=== PATIENT | female | born 1955 | race Caucasian/White ===

== ENCOUNTER 2022-02-06 11:13 | Outpatient (CLI) | payer MEDICARE, SELFPAY ==
[2022-02-09 15:54] LABS: Anti-Nuclear Ab(ANA)IgG ELISA None Detected (None Detected)
== END 2022-02-06 11:14 | disposition home or self-care (01) ==
PROVIDERS: PCP Family Medicine; Visit Provider Family Medicine
DX: Z00.00 Encounter for general adult medical examination without abnormal findings (principal); L65.9 Nonscarring hair loss, unspecified; B37.9 Candidiasis, unspecified; F32.9 Major depressive disorder, single episode, unspecified
CPT/HCPCS: 84443; 86039

== ENCOUNTER 2022-04-30 12:53 | Outpatient (CLI) | payer MEDICARE, SELFPAY ==
--- NOTE | 2022-04-30 13:00 | CRLHL7_ITS ---
For Patients: As a result of the Century Cures Act, medical imaging exams and procedure reports are released immediately into your electronic medical record. You may view this report before your referring provider. If you have questions, please contact your health care provider. BILATERAL SCREENING MAMMOGRAM WITH COMPUTER-AIDED DETECTION AND TOMOSYNTHESIS TECHNIQUE: CC, MLO and Implant displaced views were obtained. These mammographic images have been obtained using full-field digital technique. These mammographic images were interpreted with the benefit of computer-aided detection. Breast Tomosynthesis was used in this interpretation. COMPARISON FILM: 01/09/21, 07/28/19, 01/22/18. FINDINGS: The breasts are almost entirely fatty IMPRESSION: There is no radiographic evidence for malignancy. ASSESSMENT: BI-RADS Category 2: Benign RECOMMENDATION: Routine screening mammogram in 1 year. A lay language report of this examination will be provided to the patient. Juan Gerardo M.D. Diagnostic Radiologist [email or web address] ROMINA/Dictated by: Juan Gerardo MD @ 05/01/2022 9:16:00 AM (Electronically Signed)
== END 2022-04-30 12:54 | disposition home or self-care (01) ==
LOC: MAMMO 12:55
PROVIDERS: PCP Family Medicine; Visit Provider Family Medicine
DX: Z12.31 Encounter for screening mammogram for malignant neoplasm of breast (principal)
CPT/HCPCS: 77063; 77067

== ENCOUNTER 2023-03-05 08:44 | Outpatient (CLI) | payer MEDICARE, SELFPAY | END 2023-03-05 08:45 | disposition home or self-care (01) | LOC: NFLDREF 03-11 08:13 | PROVIDERS: PCP Family Medicine; Referring Provider Family Medicine; Visit Provider Family Medicine | DX: Z00.00 Encounter for general adult medical examination without abnormal findings (principal); E78.5 Hyperlipidemia, unspecified; M85.80 Other specified disorders of bone density and structure, unspecified site | CPT/HCPCS: 80053; 80061; 82306 ==

== ENCOUNTER 2023-04-08 14:21 | Outpatient (CLI) | payer MEDICARE, SELFPAY ==
--- NOTE | 2023-04-08 14:30 | CRLHL7_ITS ---
For Patients: As a result of the Cures Act, medical imaging exams and procedure reports are released immediately into your electronic medical record. You may view this report before your referring provider. If you have questions, please contact your health care provider. DXA BONE MINERAL DENSITY STUDY, 04/08/2023 Reason for exam: Osteoporosis. Current height (inches): 66.0 Weight (lbs.): 170.0 Menopause age: 45 Ethnicity: White 1. Have you had a previous hip or vertebral fracture? No. 2. Have you had any fractures during your adult life which did not result from significant trauma (e.g., auto accident)? No. 3. Did either of your parents have a hip fracture? No. 4. Do you smoke? No. 5. Have you ever taken Glucocorticoids? No. 6. Do you have rheumatoid arthritis? No. 7. Do you have secondary osteoporosis? No. 8. Do you drink 3 or more alcoholic drinks per day? No. 9. Are you being treated for osteoporosis? No. 10. Have you ever taken any of the following medications: Actonel, Evista, Fosamax, Miacalcin, Reclast, Boniva, Forteo, HRT (i.e., estrogen/hormone therapy), Protelos, Prolia, Vitamin D, Calcium, other ??? please specify. ANSWER: Yes; Fosamax, vitamin D, HRT, calcium. 11. Do you have any of the following medical conditions: Anorexia or bulimia, asthma or emphysema, end stage renal disease, hyperparathyroidism, any seizure disorders, cancer, inflammatory bowel diseases, hysterectomy, other ??? please specify. ANSWER: Yes; hysterectomy. 12. What was your maximum height (inches)? 67. 13. Do you perform weightbearing exercise regularly? No. 14. Do you regularly consume dairy products? Yes. 15. Do you drink caffeinated beverages? Yes. 16. At what age did your period start? 12. 17. Are you premenopausal? No. 18. How many full-term pregnancies have you had? 3. 19. Have you ever missed your period for more than 6 months in a row (not including or menopause)? No. TECHNIQUE: Bone mineral density study was performed using the [employer]. FINDINGS: The results of the study expressed as bone mineral density (BMD) are as follows: Lumbar Spine L1 to L4: BMD: 0.902 g/cm2. T-score: -1.3. Z-score: 0.6. Neck Left: BMD: 0.781 g/cm2. T-score: -0.6. Z-score: 1.1. Right: BMD: 0.682 g/cm2. T-score: -1.5. Z-score: 0.2. Total Left: BMD: 0.888 g/cm2. T-score: -0.4. Z-score: 0.9. Right: BMD: 0.822 g/cm2. T-score: -0.1. Z-score: 0.4. IMPRESSION: Osteopenia. COMPARISON: Compared with scan of 01/09/2021, the bone mineral density has decreased by 1.9% at the spine and decreased by 1.9% at the hip. *Comparison exams done prior to 12/2019 were performed on different unit, [employer]. FRAX 10-year Fracture Risk Major Osteoporotic Fracture: 9.5% Hip Fracture: 1.2% Reported Risk Factors: [place] () Neck BMD = 0.682, BMI = 27.4 JUAN FENTON M.D. Diagnostic Radiologist [email or web address] Transcribed: 11:[address]/Dictated by: Juan Fenton MD @ 04/09/2023 8:25:00 AM (Electronically Signed)
== END 2023-04-08 14:22 | disposition home or self-care (01) ==
PROVIDERS: PCP Family Medicine; Visit Provider Family Medicine
DX: I71.9 Aortic aneurysm of unspecified site, without rupture (principal); I34.0 Nonrheumatic mitral (valve) insufficiency; M81.0 Age-related osteoporosis without current pathological fracture; M85.80 Other specified disorders of bone density and structure, unspecified site
CPT/HCPCS: 77080; 93306

== ENCOUNTER 2023-12-01 14:34 | Outpatient (CLI) | payer MEDICARE, SELFPAY ==
--- OUTSIDE RECORDS SUMMARY | 2023-12-01 14:36 | XMS_ITS | Clinical Summary ---
Author Name Unknown Organization [facility] Address [address] [place] [address] Care Team Providers Care Finding Fastener Name Role Phone Madhu Bronson Primary Care Provider Unavailabl e Allergies No known active allergies Medications Medication Sig Dispensed Refills Start Date End Date Status BuPROPion HCl (WELLBUTRIN PO) Take 300 mg by mouth daily Active TRAZODONE HCL PO Take 150 mg by mouth daily Active LORazepam (ATIVAN PO) Take 0.5 mg by mouth every 4 hours as needed for anxiety Active OMEPRAZOLE PO Take 80 mg by mouth Active risperiDONE (RISPERDAL) 0.5 mg TABS half-tab Take 0.5 mg by mouth as needed Active Active Problems Problem Noted Date Diagnosed Date Abdominal pain 06/13/2018 Palpitations 05/28/2018 RBBB 05/28/2018 Ascending aorta dilatation (H24) 05/28/2018 Dyslipidemia 05/28/2018 Mitral valve regurgitation 05/28/2018 Chronic left shoulder pain 09/16/2017 Cervicalgia 09/16/2017 Resolved Problems Problem Noted Date Diagnosed Date Resolved Date Pain in joint, ankle and foot 03/07/2010 10/01/2010 Peroneal tendon injury 03/07/201010/01 Immunizations Name Administration Dates Next Due Influenza (High Dose) 3 shannan nt vaccine 05/16/2015,03/15/2014 Influenza (IIV3) PF 03/18/2013, 2,06/07/2010,2008 Influenza (intradermal) 03/20/2016 TD,PF 7+ (Tenivac) 11/18/2003 Tdap (Adult) Unspecified Formulation 06/12/2012 Family History Medical History Relation Comments Thyroid Disease Brother Thyroid Disease Father Chronic Obstructive Pulmonary Disease Mother Heart Surgery Mother mitral valve rep laced Hypertension Mother Thyroid Disease Sister 1 Thyroid Disease Sister 2 Relation Status Comments Brother Father Mother Sister 1 Sister 2 Social History Tobacco Use Types Packs/Day Years Used Date Smoking Tobacco: Never Smokeless Tobacco: Never Alcohol Use Standard Drinks/Week Comments Yes 0 (1 standard drink = 0.6 oz pur e alcohol) 6 drinks per week Sex and Gender Information Value Date Recorded Sex Assigned at Not on file Gender Identity Not on file Sexual Orientation Not on file Last Filed Vital Signs Vital Sign Reading Time Taken Comments Blood Pressure 145/57 06/14/2018 7:25 AM NETWORK CONTROL TECHNICIAN Pulse 69 06/14/2018 7:25 AM NETWORK CONTROL TECHNICIAN Temperature 36.1 ??C (96.9 ??F) 06/14/2018 7:25 AM CS T Respiratory Rate 16 06/14/2018 7:25 AM NETWORK CONTROL TECHNICIAN Oxygen Saturation 97% 06/14/2018 7:25 AM NETWORK CONTROL TECHNICIAN Inhaled Oxygen Concentration - - Weight 78.9 kg (174 lb) 06/13/2018 8:21 PM NETWORK CONTROL TECHNICIAN Height 167.6 cm (5' 6) 06/13/2018 8:21 PM NETWORK CONTROL TECHNICIAN Body Mass Index 28.08 06/13/2018 8:21 PM NETWORK CONTROL TECHNICIAN Plan of Treatment Not on file Advance Directives For more information, please contact: [phone] * Full Code (Latest Code Status on File) Date Activated Date Inactivated Comments 06/14/2018 1:06 PM Question Answer Comments Code status determined by: Discussion with sujit nt/legal decision maker Care Teams Finding Fastener Relationship Specialty Start Date End Date Madhu Bronson [address] [place] [address] PCP - General 05/03/18
--- OUTSIDE RECORDS SUMMARY | 2023-12-01 14:36 | XMS_ITS | Referral Summary ---
Author Name Unknown Organization [facility] Address [address] [place] [address] Care Team Providers Care Account Development Executive Name Role Phone Madhu Bronson Primary Care [...] (Tenivac) 11/18/2003 Tdap (Adult) Unspecified Formulation 06/12/2012 Social History Tobacco Use Types Packs/Day Years [...] Comments Blood Pressure 145/57 06/14/2018 7:25 AM MACHINIST FIRST CLASS Pulse 69 06/14/2018 7:25 AM MACHINIST FIRST CLASS Temperature 36.1 ??C (96.9 ??F) 06/14/2018 7:25 AM CS T Respiratory Rate 16 06/14/2018 7:25 AM MACHINIST FIRST CLASS Oxygen Saturation 97% 06/14/2018 7:25 AM MACHINIST FIRST CLASS Inhaled Oxygen Concentration - - Weight 78.9 kg (174 lb) 06/13/2018 8:21 PM MACHINIST FIRST CLASS Height 167.6 cm (5' 6) 06/13/2018 8:21 PM MACHINIST FIRST CLASS Body Mass Index 28.08 06/13/2018 8:21 PM MACHINIST FIRST CLASS Plan of Treatment Not on file Advance Directives For more information, please contact: [phone] * Full Code (Latest Code Status on File) Date Activated Date Inactivated Comments 06/14/2018 1:06 PM Question Answer Comments Code status determined by: Discussion with sujit watson/legal decision maker Care Teams Account Development Executive Relationship Specialty Start Date End Date Madhu Bronson [address] [place] [address] PCP - General 05/03/18
--- OUTSIDE RECORDS SUMMARY | 2023-12-01 14:37 | XMS_ITS | Clinical Summary ---
Author Name Unknown Organization [facility] Address [place], [place] [address] Care Team Providers Care Job Counselor Name Role Phone Madhu Brnoson MD Primary Care Provider [phone] Allergies Active Allergy Reactions Criticality Noted Date Comments Aripiprazole Tardive Dyskinesia 01/31/2013 Mouth movements at 10 mg daily Medications Medication Sig Dispensed Refills Start Date End Date Status multivitamin (MVI) tablet Take 1 tablet by mouth once daily. 0 09/13/2010 Active omeprazole (PRILOSEC) 40 mg Delayed-Release capsule Take 1 capsule by mouth once daily. 0 05/31/2019 Active buPROPion (WELLBUTRIN XL) 300 mg Extended-Release tabletIndications:Ma andrea depression, recurrent, full remission (HC),Obsessive-compu lsive disorder, unspecified type Take 1 tab by mouth every AM after taking 150 mg for 2 weeks 90 tablet 1 12/13/2019 Active traZODone (DESYREL) 150 mg tabletIndications:Ma andrea depression, recurrent, full remission (HC) Take 2 tabs by mouth every HS 180 tablet 1 12/13/2019 Active Clobetasol Propionate 0.05 % shampoo Apply directly to the affected area of the scalp. Rub in gently; leave on the scalp for 15 minutes. After 15 minutes, add water, lather and 12/06/2020 Active clonazePAM (KLONOPIN) 1 mg tablet Take 1 mg by mouth 2 times daily if needed. 12/06/2020 Active diclofenac topical (VOLTAREN) 1 % gel APPLY 2 TO 4 GRAMS TO AFFECTED AREA 4 TIMES DAILY 12/15/2020 Active rosuvastatin (CRESTOR) 5 mg tablet Take 5 mg by mouth once daily. 12/10/2020 Active terbinafine HCL (LAMISIL) 250 mg tablet Take 250 mg by mouth once daily. 12/15/2020 Active buPROPion (WELLBUTRIN XL) 150 mg Extended-Release tablet take 2-3 tablets by mouth once daily 12/06/2020 Active estradioL (ESTRACE) 1 mg tablet Take 1 mg by mouth once daily. 12/31/2020 Active cetirizine (ZYRTEC) 10 mg tabletIndications:Tang bacute maxillary sinusitis Take 1 Tablet (10 mg) by mouth once daily. 30 Tablet 01/27/2021 Active fluticasone (50 mcg per actuation) nasal solution (FLONASE)Indications :Subacute maxillary sinusitis Inhale 2 Sprays to both nostrils once daily. 1 Bottle 01/27/2021 Active benzonatate (TESSALON) 100 mg capsuleIndications:C ough Take 1 Capsule (100 mg) by mouth 3 times daily if needed for Cough. May take 1-2 capsules prn cough. Maximum 6 tablets in 24 hours. 21 Capsule 01/27/2021 Active codeine-guaiFENesin (Cheratussin AC) 10-100 mg/5 mL liquidIndications:Co ugh Take 5-10 mL by mouth at bedtime if needed for Cough. 100 mL 01/31/2021 Active fluocinolone 0.025% (SYNALAR 0.025% CREAM) 0.025 % cream APPLY TO AFFECTED AREA TWICE DAILY as needed 04/12/2021 Active triamcinolone (ARISTOCORT) 0.1 % ointmentIndications: Dermatitis Apply topically to affected area(s) 2 times daily. 80 g 07/11/2021 Active Active Problems Problem Noted Date Diagnosed Date Controlled substance agreement signed 12/23/2018 Overview: Signed: 09/14/14- Mirna Hurtado APRN, BC, SOUND EFFECTS MANAGER /psychiatry /mf Bradycardia 01/20/2015 Overview: Holter 12/2014 with average 55 beats per minute, asymptomatic. Major depression, recurrent, full remission 12/20 Osteopenia 01/08/2015 Overview: DEXA 12/2014 with FRAX 0.8%, T score -1.5 right femur. Calcium/Vit D recommended. Previously on Fosamax. Obsessive-compulsive personality trait 5 Rule out Bipolar 2 disorder 08/09/2014 Encounter for long-term (current) use of other m edications 12/05/2013 Dyslipidemia 09/18/2013 Palpitations 06/08/2013 Mitral regurgitation 06/08/2013 Overview: mild noted on echocardiogram 01/2012. Generalized anxiety disorder 04/06/2012 Screen for colon cancer 08/09/2009 Sinus bradycardia 08/02/2008 Disorder of bone and cartilage, unspecified 09/2006 Presbyopia 02/02/2007 Unspecified hemorrhoids without mention of compl ication 01/26/2007 Overview: internal, seen in 2001 colposcopy Symptomatic states associated with artificial me nopause 11/17/2005 FATIGUE 12/02/1999 MYLAGIA - NOS 12/02/1999 CONSTIPATION HIATUS HERNIA Overview: EGD 06/2012 reflux Resolved Problems Problem Noted Date Diagnosed Date Resolved Date OCD (obsessive compulsive disorder) 12/05/2013 10/30/2014 Major depression, recurrent, mild 02/17/2012 01/16/2015 Recurrent major depression in remission 01/06/2012 02/17/2012 Major depressive disorder, r ecurrent episode, unspecified 08/13/2007 01/06/2012 Disorder of bone and cartilage, unspecified 01/26/2007 09/02/2011 COlonoscopy 2001-normal 11/17/200507/21 Bipolar disorder, unspecified 11/17/2005 08/13/2007 Overview: headaches.~Bipolar mood disorder.~no anesthetic difficulties. Depressive disorder, not elsewhere classified 11/18/19 06 02/17/2012 VAGINITIS - CANDIDIASIS 08/21/200508/20 UPPER RESPIRATORY INFECTION - ACUTE 12/10/2004 09/02/2011 Immunizations Name Administration Dates Next Due COVID-19 vaccine (Moderna 100mcg/0.5mL) PF, MDV 10/13/2020,09/15/2020 Influenza Virus, Unspecified 03/20/2016 Influenza, High-dose Inactivated 05/16/2015,02/18 Influenza, IIV3 (Age 6-35 mos) 03/16/2018 Influenza, IIV3 (Age >=3 years) 03/18/20 13,03/18/2012,06/07/2010,2008 Influenza, IIV4 05/18/2020,03/20/2016,05/16/2015 Influenza, IIV4 (=>6mos) MDV 04/30/2019,03/24/20 17 Pneumococcal conj 13-Valent (Prevnar 13) 07/26/2020 Td (Age >=7 Years) 11/18/2003 Tdap 12/06/2020,06/12/2012 Zoster (Shingrix-RZV, recombinant) 05/04/2018, Family History Medical History Relation Name Comments Good Health Brother Thyroid Disease Father Stroke Maternal Grandmother Other Mother macular degener ation/glaucoma Thyroid Disease Sister 1 #1 Thyroid Disease Sister 2 #2 Anesthesia Problem No Family History Blood Disease No Family History Cancer-breast No Family History Relation Name Status Comments Brother Father Maternal Grandmother Mother (Age 71) htn, glauc [place]ud Sister 1 #1 Sister 2 #2 Social History Tobacco Use Types Packs/Day Years Used Date Smoking Tobacco: Never Smokeless Tobacco: Never Tobacco Cessation:Counseling Given: Yes Alcohol Use Standard Drinks/Week Comments Yes 0 (1 standard drink = 0.6 oz pur e alcohol) 10 drinks/week PHQ-2 Answer Date Recorded PHQ-2 TOTAL SCORE 0 12/13/2019 Social Connections Answer Date Recorded Frequency of Communication with Friends and Fami ly Not on file 07/10/2021 Financial Resource Strain Answer Date R ecorded Difficulty of Paying Living Expenses Not on file 07/10/2021 Difficulty of Paying Living Expenses Not on file 07/10/2021 Sex and Gender Information Value Date Recorded Sex Assigned at Not on file Gender Identity Not on file Sexual Orientation Not on file Obstetrics History Para Term AB IAB SAB Ectopic Multiple Livin g Live Births 3 3 3 Date Outcome GA Total Labor Labor/2nd/3rd Weight Sex Delivery Anes PTL Silvia A1 A5 Name Cl in Para Para Para Last Filed Vital Signs Vital Sign Reading Time Taken Comments Blood Pressure 110/80 07/11/2021 10:42 AM THIRD MATE Pulse 70 07/11/2021 10:42 AM THIRD MATE Temperature 37 ??C (98.6 ??F) 05/02/2021 12:32 PM CDT Respiratory Rate 15 01/27/2021 2:01 PM CDT Oxygen Saturation 97% 01/31/2021 2:28 PM CDT Inhaled Oxygen Concentration - - Weight 77.1 kg (170 lb) 07/11/2021 10:42 AM THIRD MATE Height 168.9 cm (5' 6.5) 07/11/2021 10:42 AM CS T Body Mass Index 27.03 07/11/2021 10:42 AM THIRD MATE Plan of Treatment Health Maintenance Due Date Last Done Comments Hepatitis C screening for ag e 18-79 1973 Mammogram for age 45-75 09/20/2016 09/21/19 16, 09/14/2014, 06/23/2013, Additional history exists Colonoscopy through age 75 08/07/2019 08/07/2009 DEXA/DXA scan for age 65+ 07/23/20202014, 02/24/2012, 06/25/2010, Additional history exists Medicare Wellness for age 65+ 2020 Depression screening for age 12+ 12/12/2020 12/13/2019, 10/27/2019, 10/11/2019, Additional history exists Lipids for age 45-75 06/18/2021 06/18/2016, 01/08/2015, 01/16/2014, Additional history exists Pneumococcal series for age 65+ (2 of 2 - PPSV23 or PCV20) 07/26/2021 07/26/2020 BMI (ht and wt on same day) for age 18+ 07/11/2022 07/11/2021, 05/02/2021, 01/27/2021, Additional history exists COVID-19 vaccine series ( season) 2023 05/19/2021, 10/13/2020, 09/15/2020 Influenza for age 65+ 03/20/2024 05/18/2020 , 04/30/2019, 03/24/2017, Additional history exists Tetanus booster 12/06/2030 12/06/2020, 05/21, 11/18/2003 Zoster (shingles) series for age 50+ Completed 05/04/2018, 02/18/2018 Tdap Completed 12/06/2020, 06/12/2012 Procedures Procedure Name Priority Date/Time Associated Diagnosis Comments LIPID PANEL W REFLEX MEASURED LDL Routine 06/18/2016 10:18 AM THIRD MATE Dyslipidemia XR MAMMO BILAT DIAG FFDM (IA) Routine 09/21/2015 1:36 PM THIRD MATE Lump in female breast History of breast augmentation XR DXA BONE DENSITY 2 SITES AXIAL Routine 01/16/2015 2:15 PM CDT Osteopenia from Last 3 Months or Most Recently Relevant to Health Maintenance Results * (ABNORMAL) LIPID PANEL W REFLEX MEASURED LDL (06/18/2016 10:18 AM THIRD MATE) CHOLESTEROL,TOTAL 250(H) 100 - 199 mg/dL 06/18/2016 4:35 PM THIRD MATE [facility] Bright Pattern [facility] TRAL LABORAT[facility] TRIGLYCERIDES 96 <150 mg/dL 06/18/2016 4:35 PM THIRD MATE [facility] HDL CHOLESTEROL 72 >40 mg/dL 6 4:35 PM THIRD MATE [facility] NON-HDL CHOLESTEROL 178(H) <145 mg/dl 06/18/2016 4:35 PM THIRD MATE [facility] CHOL/HDL RATIO 3.47 <4.50 06/18/2016 4:35 PM THIRD MATE [facility] LDL CHOLESTEROL 159(H) <=130 mg/dL 06/18/2016 4:35 PM THIRD MATE [facility] PATIENT STATUS NOT GIVEN 06/18/2016 4:35 PM THIRD MATE [facility] Bright Pattern [facility] TR[facility] Blood BLOOD SPECIMEN / Unknown Venipuncture / Unknown 06/18/2016 10:18 AM THIRD MATE 06/18/2016 10:18 AM THIRD MATE Suni Del Rio DO CHEMISTRY [facility] [address] [place] [address], [place] * XR MAMMO BILAT DIAG FFDM (09/21/2015 1:36 PM THIRD MATE) Anatomical Region Laterality Modality BREASTS, Breast Left, Breast Right Bilateral Mammography Impressions 09/21/2015 4:35 PM THIRD MATE There are findings of benign fat necrosis at the level of the patient's described palpable lump. There is no evidence for malignancy in the BILATERAL breasts. RECOMMENDATION: ?? Annual screening mammography is recommended. BI-RADS Category 2: Benign Dictated by: Ana Lilia Crawley MD @09/21/2015 2:09:24 PM Narrative 09/21/2015 4:35 PM THIRD MATE BILATERAL DIGITAL DIAGNOSTIC MAMMOGRAM, 09/21/2015 LEFT BREAST ULTRASOUND, 09/21/2015 INDICATION: LEFT breast lump noted about 1 month ago. The patient had breast implants placed 6 months ago and also a breast lift procedure. TECHNIQUE: BILATERAL CC and MLO views and BILATERAL CC and MLO views with breast implants displaced are interpreted with digital technique. COMPARISON: 09/14/2014. BREAST COMPOSITION: ?? Almost entirely fat density. FINDINGS: In the RIGHT breast, there is no evidence for malignancy. In the LEFT breast, a marker was placed in the region of interest which is located at the 6 o'clock position. At the 6 o'clock position of the LEFT breast, 5.7 cm from the nipple on the MLO implant-displaced view, there is a curvilinear hyperdensity with internal fat density. A similar finding is present on the LEFT CC view projecting over the retroareolar tissues. I suspect that this is fat necrosis. For improved characterization, a limited LEFT breast ultrasound will be performed today. A limited LEFT breast ultrasound of the lower LEFT breast was performed and real-time scanning was performed by the radiologist. At the level of interest indicated by the patient, there is a circumscribed, oval mass with a peripheral echogenic rim and a central lobulated hypoechoic region. Under color Doppler, there is no abnormal vascularity. This region measures 3.2 x 2.4 x 0.8 cm. There is no posterior acoustic shadowing. The appearance is considered evidence of benign fat necrosis. Suni Del Rio DO MAMMO * (ABNORMAL) XR DXA BONE DENSITY 2 SITES (01/16/2015 2:15 PM CDT) Anatomical Region Laterality Modality Spine, HIPS, HIPL, HIPR Other Narrative 01/17/2015 2:58 PM CDT Please see scanned document for results of this study. Procedure Note Judi Castillo - 01/17/2015 Please see scanned document for results of this study. Suni Del Rio DO DEXA from Last 3 Months or Most Recently Relevant to Health Maintenance Care Teams Job Counselor Relationship Specialty Start Date End Date Madhu Bronson MD [address] [place] [address] PCP - General Family Practice 08/30/19
--- NOTE | 2023-12-01 14:40 | MM_ITS ---
Patient: BRENDON WOOD Facility:?[facility] Patient ID:?[id number] Site Patient ID:?[id number]. Site :?[id number] Study:?XRay-Breast Bilateral 3D W/CAD-12/01/2023 2:58:22 PM Ordering Physician:Madhu Pop Final Report: BILATERAL SCREENING MAMMOGRAM WITH COMPUTER-AIDED DETECTION TECHNIQUE: CC, MLO and Implant displaced views were obtained. These mammographic images have been obtained using full-field digital technique. These mammographic images were interpreted with the benefit of computer-aided detection. COMPARISON FILM: 04/30/22, 01/09/21, 07/28/19. FINDINGS: There are scattered areas of fibroglandular density. IMPRESSION: There is no radiographic evidence for malignancy. ASSESSMENT: BI-RADS Category 2: Benign RECOMMENDATION: Routine screening mammogram in 1 year. A lay language report of this examination will be provided to the patient. Juan Gerardo M.D. Diagnostic Radiologist [email or web address] DSM/sp D& Transcribed: 7:25 p.m. SP/Dictated by: Juan Gerardo MD @ 12/02/2023 8:39:00 AM Signed by:?Juan Gerardo MD @12/02/2023 7:45:56 PM (Electronic Signature)
== END 2023-12-01 14:35 | disposition home or self-care (01) ==
LOC: MAMMO 14:34
PROVIDERS: PCP Family Medicine; Visit Provider Family Medicine
DX: Z12.31 Encounter for screening mammogram for malignant neoplasm of breast (principal)
CPT/HCPCS: 77063; 77067

== ENCOUNTER 2025-01-03 16:22 | Emergency (ER) | payer MEDICARE, SELFPAY ==
--- OUTSIDE RECORDS SUMMARY | 2025-01-03 16:25 | XMS_ITS | Data Portability ---
Author Organization SANDRA - [facility] SANDRA Cai, Vickie Address [address] [place] [address] Assessment Encounter Date Assessment Date Assessment LastModified by Organization Details LastModified Time 11/18/2024 11/18/2024 -25 mins - Documented the total time spent on patient care, including bnnr-bj-nuny and rqc-qhzv-mw-f james activities including reviewing outside records and documentation . [email or web address] Not available 11/18/2024 19:33:50 12/21/2024 12/21/2024 -30 mins - Documented the total time spent on patient care, including onzl-xd-hkiq and hwj-utby-vb-f james activities including reviewing outside records and documentation . [email or web address] Not available 12/21/2024 18:34:21 Plan of Treatment Reminders Order Date Submit Date Provider Last Modified By Organization Details Last Modified Time Details Appointments Annual Wellness Visit 2024 10:40A M Brittani Denis CNP Not available Not available Not available Lab None recorded. Referral orthopedi c sports medicine referral - Referral to Orthopedi cs Evaluati on of SciaticaR lizzy for Referral: Patient presents with sciatic pain, character ized by radiating discomfor t down the left lower extremity consisten t with nerve root involveme nt.Clinic al Summary:C onservati ve treatment with physical therapy and acetamino phen has been initiated . Oral NSAIDs avoided due to cardiovas cular risks. Pain persists and is limiting function despite icing, recommend ed exercises , and tylenol. Evaluatio n is requested to assess for possible structura l causes (e.g., disc herniatio n, foraminal stenosis) and to determine if imaging or injection s 2024 025 [email or web address] [facility], [address] [place], [place], [address], 12/21/2024 13:40:11 Procedures None recorded. Surgeries None recorded. Imaging None recorded. Medication Orders methylpre dnisolone 4 mg tablets in a dose pack 2024 025 [id number], [address] [place] [address], [place], [address], 12/21/2024 10:34:49 bupropion HCl XL 150 mg 24 hr tablet, extended release 2024 025 [id number], [address] [place] [address], [place], [address], 11/18/2024 19:21:32 pantopraz ole 40 mg tablet,de layed release 2024 025 [id number], [address] [place] [address], [place], [address], 11/18/2024 19:21:32 clonazepa m 0.5 mg tablet 2024 025 [id number], [address] [place] [address], [place], [address], 11/18/2024 19:21:34 rosuvasta tin 5 mg tablet 2024 025 [id number], [address] [place] [address], [place], [address], 11/18/2024 19:21:34 Patient TargetsNo targets recorded. Patient Instructions Encounter Date Encounter Id Patient Instructions Last Modified By Organization Details Last Modified Time 11/18/2024 [id number] Your medication refills have been processed for all your current prescriptions, except for semaglutide. You will be scheduled for a lab-only visit in about one week to complete a GeneSight cheek swab test. This test is to help guide your depression and anxiety medication options. When you receive the Placesteright pamphlet, please review it and call your insurance company to confirm coverage. If you discover that the test will be too costly, you may cancel the lab appointment. After results are received, we can review them together and make a plan. Your annual wellness exam is due in February. Your lab work for cholesterol and other routine tests will be deferred to coincide with that visit. Please reach out sooner with any questions or concerns. [email or web address] Not available 11/18/2024 19:33:28 12/21/2024 [id number] - Duloxetine has been removed from your medication list, as you have chosen to stop taking it at this time. Continue your current bupropion and trazodone. - Take the 6-day prednisone pack as prescribed to help reduce inflammation and relieve sciatica pain. - Perform the home exercises to ease nerve irritation; see below. - See the housing specialist as referred to discuss a possible corticosteroid injection and to be evaluated for physical therapy. - Apply an mgzd-wnr-satgegr salicylic acid spot treatment directly to the acne spot; avoid spreading it over healthy skin. If the lesion does not heal within 4 6 weeks, arrange a dermatology evaluation. - If your sciatica pain returns or worsens as you taper off the prednisone, contact the housing specialist or our office for further management. For left leg sciatica, gentle stretching and strengthening exercises can help relieve nerve pressure and improve mobility. Start with: 1. Piriformis Stretch Lie on your back with both knees bent. Cross your right ankle over your left knee and gently pull the left thigh toward your chest. Hold for 20 30 seconds. Repeat on both sides. 2. Mkkk-rw-Hsplk Stretch While lying on your back, pull your left knee toward your chest and hold for 20 30 seconds. This helps relieve pressure on the sciatic nerve. 3. Cat-Cow Stretch On hands and knees, alternate arching your back up and dipping it down slowly. This mobilizes the spine and reduces tension on the sciatic nerve. 4. Pelvic Tilts Lie on your back with knees bent. Flatten your lower back against the floor by tightening your abdominal muscles and tilting your pelvis upward slightly. Hold for a few seconds, then relax. 5. Standing Hamstring Stretch Place your left heel on a low surface (like a step), keep the knee straight, and gently lean forward at the hips until you feel a stretch in the back of your thigh. Perform each stretch gently and stop if pain worsens. These should be done daily or as tolerated. If symptoms persist or worsen, physical therapy evaluation is advised. [email or web address] Not available 12/21/2024 18:33:40 Reason for Referral Orthopedic Sports Medicine Klarissa bond for Disorder of left sciatic nerve Referral to Orthopedics Evaluation of SciaticaReason for Referral:Patient presents with sciatic pain, characterized by radiating discomfort down the left lower extremity consistent with nerve root involvement.Clinical Summary:Conservative treatment with physical therapy and acetaminophen has been initiated. Oral NSAIDs avoided due to cardiovascular risks. Pain persists and is limiting function despite icing, recommended exercises, and tylenol. Evaluation is requested to assess for possible structural causes (e.g., disc herniation, foraminal stenosis) and to determine if imaging or injections Referring Physician: Brittani Denis, Family Medicine, Encounter Date: 12/21/2024 Results Created Date Observation Date Name Description Value Unit Range Abnormal Flag Note LastModifiedBy Organization Detail LastModifiedTime Result Notes None recorded. 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 4 11:56:53 Diaphrag matic hernia 69205816 Active 2014 HIATUS HERNIA Not Available [facility] 4 11:50:47 Screenin g status 917841239 Completed 200905/10/2024 Screen for colon cancer Not Available [facility] 4 11:50:47 Ascendin g aorta dilatati on 517167086 Active 2017 Ascendin g aorta dilatati on Not Available [facility] 4 11:50:48 Disorder of bone 26549465 Active 2006 Disorder of bone and cartilag e, unspecif ied Oste openia Not Available [facility] 4 11:50:48 Drug indicate d 564258301 Active 2013 Encounte r for long-ter m (current ) use of other medicati ons Cont rolled substanc e agreemen t signed Not Available [facility] 4 11:50:48 Bradycar angel 82391217 Active 2008 48-50s, low heart rate all of my life used to faint occasion ally but hasn't for many years. Saw [facility] cardiolo gist but does not require follow up per patient report. SANDRA [place] - [facility] 4 11:54:47 Symptoms and signs involvin g hoseaan ce and behavior 034272042 Active 2014 Obsessiv e-compul constanzae personal ity trait Not Available [facility] 4 11:50:49 Generali zed anxiety disorder 92521940 Active 2011 Generali zed anxiety disorder Not Available [facility] 4 11:50:49 Malaise 972774426 Active 1999 FATIGUE Not Available [facility] 4 11:50:49 Non-rheu matic mitral regurgit ation 120732588 Active 2012 Mitral regurgit ation mild per echo 03/2023; Echo compared to 2018 no signific ant changes [facility] [place] - [facility] 4 11:55:57 Hemorrho ids 88224627 Completed 200605/10/2024 Unspecif ied hemorrho ids without mention of complica tion Not Available [facility] 4 11:50:50 Presbyop ia 33765490 Active 2006 Presbyop ia Not Available [facility] 4 11:50:50 Atrophic vaginiti s 68810287 Active 2023 Post-men opausal atrophic vaginiti s Not Available [facility] 4 11:50:50 Hyperlip idemia 84884379 Active 2013 Dyslipid emia Hyp erlipemi a Not Available [facility] 4 11:50:51 Palpitat ions 49590753 Active 2012 Palpitat ions Not Available [facility] 4 11:50:51 Long-ter m drug therapy Active 2018 Controll ed substanc e agreemen t signed Jennifer Ngdonna figueroa, [facility] 4 20:24:22 Osteopen ia 693107746 Active 2014 history of fosamax, does not recall how long she was on it for Rivas figueroa, [facility] 4 12:00:33 Notes:Problem Name: MYLAGIA - NOS Problem Code Type: SNOMED Status: Active Start_Date: 12/01/1999 - Problem Notes None recorded. Procedures Surgical History Date Name Laterality Status Provider Name and Address Organization Details Recorded Time 4 Date of Last Colonoscopy completed [facility] 06/13/2024 12:08:51 6 Date of Last Mammogram completed [employer] [facility] 06/13/2024 12:08:34 5 Most Recent Bone Density completed [employer] [facility] 06/13/2024 12:09:06 Imaging Results None recorded. Procedure Notes None recorded. Medical Equipment None Reported. Allergies Allergen ID Allergen Name Allergen Category Reaction Reaction Severity Criticality Documentation Date Start Date Code Code System Note Provider Name and Address Organization Details Recorded Time 87051 aripipraz ole Not available Not available Not available Not available 05/10/20242012 46303 RxNorm React ion: Tardi ve Dyski nesia , sever ity: Mild Not Available [facility] 4 12:11:03 65361 aripipraz ole medicatio n Not available Not available Not available 11/18/20242012 69906 RxNorm Mouth movem ents at 10 mg daily unrec ogrudy ed react ion (text : Tardi ve Dyski nesia , code: [id number]) [facility] Not Available [place] - External Data Service - prod 5 03:57:14 Medications Name Sig Start Date Stop Date Status Note LastModified by Organization Details LastModified Time doxycycli ne hyclate 100 mg capsule 11/18 completed Not Available Not Available Not Available polyethyl don glycol 3350 17 gram oral powder packet TAKE 1 PACKET PO DAILY 2023 active Not Available Not Available Not Avai lable cetirizin e 10 mg tablet 01/07 completed Not Available Not Available Not Available benzonata te 200 mg capsule 11/18 completed Not Available Not Available Not Available valacyclo vir 1 gram tablet TAKE 2 TABLETS BY MOUTH IN THE MORNING AND 2 IN THE EVENING FOR ONE DAY PER OUTBREAK 11/18 completed Not Available Not Available Not Available clonazepa m 0.5 mg tablet Take 1 tablet (0.5 mg) by mouth once daily as needed for acute anxiety. * active Not Available Not Available No t Available clonazepa m 1 mg tablet Take 1 mg twice a day by oral route as needed. 11/18 completed clonazeP AM 1 mg Tab Take 1 mg by mouth 2 times daily if needed. Not Available Not Available Not Available clobetaso l 0.05 % topical cream APPLY TO AFFECTED AREAS OF THE BODY (BUTTOCK AREA) TWO TIMES DAILY FOR, 3 MONTHS THEN 2X/WEEK FOR MAINTENA NCE active Not Available Not Available No t Available omeprazol e 40 mg capsule,d elayed release 01/07 completed Not Available Not Available Not Available triamcino lone acetonide 0.1 % topical cream Apply twice a day by topical route. 11/18 completed Triamcin olone Acetonid e 0.1 % Oint Apply topicall y to affected area(s) 2 times daily. Not Available Not Available Not Available terbinafi ne HCl 250 mg tablet 01/07 completed Not Available Not Available Not Available methocarb yani 750 mg tablet 11/18 completed Not Available Not Available Not Available estradiol 1 mg tablet 01/07 completed Not Available Not Available Not Available benzonata te 100 mg capsule 02/23 completed Not Available Not Available Not Available pantopraz ole 40 mg tablet,de layed release TAKE 1 TABLET (40 mg) BY MOUTH TWICE DAILY.* active Not Available Not Available No t Available trazodone 150 mg tablet TAKE TWO TABLETS BY MOUTH NIGHTLY AT BEDTIME* active Not Available Not Available No t Available tacrolimu s 0.03 % topical ointment Apply twice a day by topical route as needed. 11/18 completed Tacrolim us 0.03 % Oint twice daily as needed Not Available Not Available Not Available codeine 10 mg-guaife nesin 100 mg/5 mL Syrup 01/07 completed Not Available Not Available Not Available estradiol 0.01% (0.1 mg/gram) vaginal cream INSERT 2 GRAMS VAGINALL Y ONCE DAILY FOR 2 WEEKS, THEN DECREASE TO 1 GRAM TWICE PER WEEK THEREAFT ER* 11/18 completed Not Available Not Available Not Available methylpre dnisolone 4 mg tablets in a dose pack Take 1 dose pack by oral route as directed .* active Not Available Not Available No t Available clobetaso l 0.05 % scalp solution USE DIRECTED TO THE SCALP TWICE A DAY ON TO CLEAN AND DRY HAIR FOR 2 WEEKS AND THEN NEEDED FOR FLARES active Not Available Not Available No t Available fluticaso ne propionat e 50 mcg/actua tion nasal spray,abdiaziz pension Sparkman 2 sprays every day by intranas al route. 11/18 completed Fluticas one Propiona te 50 MCG/ACT Suspensi on Nasal Inhale 2 Sprays to both nostrils once daily. Not Available Not Available Not Available dicyclomi ne 10 mg capsule take 1 capsule by oral route 3 times every day as needed for abdomina l pain* 11/18 completed Not Available Not Available Not Available amoxicill in 875 mg-potass ium clavulana te 125 mg tablet 11/18 completed Not Available Not Available Not Available rosuvasta tin 5 mg tablet TAKE 1 TABLET BY MOUTH ONE TIME DAILY.* active Not Available Not Available No t Available bupropion HCl XL 150 mg 24 hr tablet, extended release TAKE 2 TABLETS (300 mg) BY MOUTH ONCE DAILY.* active Not Available Not Available No t Available Saccharom yces boulardii 250 mg capsule 11/18 completed Not Available Not Available Not Available clobetaso l 0.05 % shampoo 11/18 completed Clobetas ol Propiona te 0.05 % Shampoo Apply directly to the affected area of the scalp. Rub in gently; leave on the scalp for 15 minutes. After 15 minutes, add water, lather and Not Available Not Available Not Available duloxetin e 60 mg capsule,d elayed release Take 1 capsule by oral route. active Not Available Not Available No t Available bupropion HCl 11/18 completed buPROPio n ER (XL) 150 mg Tab ER 24hr take 2-3 tablets by mouth once daily Not Available Not Available Not Available fluocinol one acetonide (bulk) 11/18 completed Fluocino lone Acetonid e 0.025 % Crm APPLY TO AFFECTED AREA TWICE DAILY as needed Not Available Not Available Not Available diclofena c 1 % topical gel 01/07 completed Not Available Not Available Not Available semagluti de (weight loss) Inject 0.4 mL weekly active Not Available Not Available No t Available Vitals Date Recorded Body height Body mass index (BMI) Body weight Body temperature Oxygen saturation Oxygen saturation in Arterial blood by Pulse oximetry Heart rate Systolic blood pressure Diastolic blood pressure Provider Name and Address Organization Details Last Updated DateTime 167.64 cm 27.9 kg/m2 31260.4 8 g 98 [degF] 98 % 98 % 53 /min 128 mm[Hg] 69 mm[Hg] Nick Corado [place] - [facility] 12:22:53 Date Recorded Body height Body mass index (BMI) Body weight Body temperature Heart rate Oxygen saturation Oxygen saturation in Arterial blood by Pulse oximetry Systolic blood pressure Diastolic blood pressure Provider Name and Address Organization Details Last Updated DateTime 5 167.64 cm 28 kg/m2 47370.9 9 g 96.7 [degF] 57 /min 96 % 96 % 126 mm[Hg] 80 mm[Hg] Helga Alvarado [place] - [facility] 5 09:55:56 Social History Question Answer Notes LastModified by eReceipts Details LastModified Time Tobacco Smoking Status Never Smoker Not Available [facility] 05/10/2024 09:18:46 What Is The Highest Grade Or Level Of School You Have Completed Or The Highest Degree You Have Received? [id number] Information not available 06/13/2024 Sex: Female Functional Status Question Answer Note LastModified by eReceipts Details LastModified Time Do you have transportation difficulties? Has reliable transportation Information not available 06/13/2024 What is your exercise level? Walking, golfing Information not available 06/13/2024 Mental Status None recorded. Family History Relationship Description Onset Age of this Age Resolved Age Notes LastModified by Organization Details LastModified Time Father Disorder of thyroid gland [email or web address] Not available 2023 12:02:23 Maternal Grandmother Heart disease stroke [email or web address] Not available 2023 12:02:55 Mother Degenerative disorder of macula macula r degene ration /glauc salud [email or web address] Not available 06/13/2024 12:03:45 Sister Disorder of thyroid gland 1 [email or web address] Not available 2023 12:04:18 Sister Disorder of thyroid gland 2 [email or web address] Not available 2023 12:04:35 Medical History No medical history recorded. Gynecological History Statement/Question Response Date of Last Colonoscopy 02/09/2024 Date of Last Mammogram 09/21/2015 Most Recent Bone Density 01/16/2015 Obstetrics History GPAL:G 0 P 0 0 0 0 Immunizations Vaccine Type Date Status Note Provider Nam e and Address Organization Details Recorded Time Influenza, high-dose, trivalent, PF 4 completed Not Available [facility] 05/10/2024 14:20:20 Td (adult), 5 Lf tetanus toxoid, preservative free, adsorbed 4 completed Not Available [facility] 05/10/2024 14:20:21 influenza, unspecified formulation 6 completed Not Available [facility] 05/10/2024 14:20:21 Influenza, split virus, quadrivalent, PF 0 completed Not Available [facility] 05/10/2024 14:20:21 zoster recombinant 8 completed Not Available [facility] 05/10/2024 14:20:22 Influenza, split virus, quadrivalent, PF 6 completed Not Available [facility] 05/10/2024 14:20:22 pneumococcal polysaccharide PPV23 3 completed Not Available [facility] 05/10/2024 14:20:22 zoster recombinant 8 completed Not Available [facility] 05/10/2024 14:20:22 Tdap 1 completed Not Available [facility] 05/10/2024 14:20:22 Influenza, split virus, trivalent, preservative 9 completed Not Available [facility] 05/10/2024 14:20:22 COVID-19, mRNA, LNP-S, PF, 100 mcg/0.5mL dose or 50 mcg/0.25mL dose 1 completed Not Available [facility] 05/10/2024 14:20:22 Influenza, split virus, trivalent, preservative 3 completed Not Available [facility] 05/10/2024 14:20:22 Influenza, high-dose, trivalent, PF 5 completed Not Available [facility] 05/10/2024 14:20:22 COVID-19, mRNA, LNP-S, PF, 100 mcg/0.5mL dose or 50 mcg/0.25mL dose 1 completed Not Available [facility] 05/10/2024 14:20:22 Influenza, split virus, trivalent, preservative 0 completed Not Available [facility] 05/10/2024 14:20:23 Pneumococcal conjugate PCV 13 1 completed Not Available [facility] 05/10/2024 14:20:23 Influenza, split virus, quadrivalent, preservative 7 completed Not Available [facility] 05/10/2024 14:20:23 Influenza, split virus, trivalent, preservative 2 completed Not Available [facility] 05/10/2024 14:20:23 Influenza, split virus, trivalent, preservative 3 completed Not Available [facility] 05/10/2024 14:20:24 Influenza, split virus, trivalent, preservative 2 completed Not Available [facility] 05/10/2024 14:20:24 Influenza, split virus, quadrivalent, preservative 9 completed Not Available [facility] 05/10/2024 14:20:24 Influenza, split virus, trivalent, preservative 4 completed Not Available [facility] 05/10/2024 14:20:24 COVID-19, mRNA, LNP-S, PF, 100 mcg/0.5mL dose or 50 mcg/0.25mL dose 1 completed Not Available [facility] 05/10/2024 14:20:24 Influenza, split virus, quadrivalent, PF 5 completed Not Available [facility] 05/10/2024 14:20:24 Td (adult), 2 Lf tetanus toxoid, preservative free, adsorbed 4 completed Not Available [facility] 05/10/2024 14:20:24 Tdap 2 completed Not Available [facility] 05/10/2024 14:20:24 Influenza, high-dose, quadrivalent, PF 1 completed Not Available [facility] 05/10/2024 14:20:24 Influenza, split virus, trivalent, PF 8 completed Not Available [facility] 05/10/2024 14:20:25 Past Encounters Encounter ID Performer Location Encounter Start Date Encounter Closed Date Diagnosis/Indication Diagnosis SNOMED-CT Code Diagnosis ICD10 Code Diagnosis Note [id number] Brittani Denis CNP [facility] [address] [place] [address] 11/18/2024 12:07:09 11/18/2024 13:35:54 Generalized anxiety disorder 77229533 F41.1 - Patient reports intermitte nt use of clonazepam , approximat oz once a month, for acute anxiety attacks. - Discussed the potential benefits of pharmacoge netic testing (GeneSight ) to tailor medication therapy based on genetic makeup. - Provided education on the GeneSight test, including the process (cheek swab) and the potential for insurance coverage. - Patient advised to contact [employer] or their insurance company to confirm coverage before proceeding with the test. - Diamante boo scheduled a lab visit for the GeneSight swab in one week, pending insurance confirmati on. - Patient to continue current medication regimen until results are available. Recurrent major depression in full remission 18721943 F33.42 - Patient has a long history of depression , currently managed with trazodone 300 mg and bupropion 300 mg. - Patient expresses difficulty with consistent medication adherence and concerns about the necessity of current medication s. - Discussed the potential for pharmacoge netic testing (GeneSight ) to optimize medication therapy. - Provided education on the GeneSight test, including the process and potential benefits. - Patient advised to confirm insurance coverage for the GeneSight test. - Diamante boo scheduled a lab visit for the GeneSight swab in one week, pending insurance confirmati on. - Patient to continue current medication regimen until results are available. Eosinophil ic esophagitis 045339291 K20.0 - Refill PPI provided today. Pt reports no new or worsening symptoms. - Continue to monitor and adjust treatment plan as needed. Hyperlipidemia 96694100 E78.5 - Patient's cholestero l was mildly elevated in February of the previous year. - Discussed the importance of consistent use of statin medication s to reduce the risk of cardiovasc ular events. - Educated patient on the benefits and potential side effects of statins, including muscle aches and pains. - Patient has a family history of cardiovasc ular disease (maternal grandmothe r with stroke). - Advised patient to adhere to statin therapy and monitor for any side effects. - Refill of cholestero l medication provided. - Annual wellness visit and labs scheduled for February to reassess cholestero l levels. [id number] Brittani Denis CNP [place] [address] [place] Lorenzo [address] 12/07/2024 10:40:10 12/07/2024 10:56:33 [id number] CARLOS Del Cast[place] [address] [place]tt [address] 12/21/2024 09:37:50 12/21/2024 10:48:34 Moderate recurrent major depression [id number] F33.1 - Gene site testing results reviewed, indicating favorable metabolism for current medication s: bupropion, duloxetine , and trazodone. - PHQ-9 scores reviewed, showing stable condition. - Patient reports situationa l stressors but denies severe depressive symptoms. - Patient is currently in counseling , which is beneficial . - Discussed the possibilit y of weaning off medication s; patient prefers to continue current regimen for now. - Advised to revisit medication reduction after situationa l stressors have resolved. Disorder o f left sciatic nerve [id number] M54.32 - Patient reports pain radiating from the hip down the leg, consistent with sciatica. Patient reports history of effective corticoste roid injection for similar symptoms but reports it has been years.- Positive straight leg test confirming sciatica.- Discussed history of intermitte nt sciatica and previous effective corticoste roid injection. - Prescribed a 6-day course of prednisone to reduce inflammati on.- Provided home exercises to alleviate symptoms.- Referred to orthopedic s for considerat ion of corticoste roid injection and potential physical therapy.- Advised to follow up with orthopedic s if symptoms persist or worsen. Acne [id number] L70.9 - Patient presents with one pimple-lik e lesion. - Recommende d over-the-c ounter salicylic acid spot treatment. - Advised to apply treatment directly to the lesion to avoid skin dryness. - Instructed to monitor the lesion; if it persists beyond 4-6 weeks, or changed; follow up is recommende d. Health Concerns Section Related Observation LastModified by Organization Detai ls LastModified Time None Recorded Concern Status LastModified by Organization Details LastModified Time None Recorded Advance Directives Directive None Recorded Payers Insurance Date Sequence Insurance Name Policy Number Policy Sosa Covered Member ID Sosa Member ID Guarantor Name 12/27/2024 1 [place]) [id number] Marci Rolon [id number] Marci Rolon 12/20/2024 [place] [employer] [facility] Marci Rolon [id number] Marci Rolon Notes Date Note Type Note Provider Name and Address Organization Details Recorded Time 11/18/2024 text/html The patient is a 69-year-old female with a history of depression and hyperlipidemia, presenting for medication refills. Medication Refills: - Requests refills for all medications, including those for depression and hyperlipidemia. - Admits to inconsistent medication adherence, stating, I'm a terrible pill taker. Depression: - Onset at age 28. - Currently taking trazodone 300 mg and Wellbutrin 300 mg, but not consistently. - Uncertain about the need for Cymbalta. - Recent breakup of engagement causing increased stress. - Family history of depression. - Clonazepam prescribed for acute anxiety attacks; uses approximately once a month, but finds it helpful during stressful events. - Interested in pharmacogenetic testing to evaluate medication efficacy. - Reports poor sleep quality, with frequent awakenings after 1.5 hours of sleep; Fitbit records 7-8 hours of sleep per night, but patient does not feel rested. Hyperlipidemia: - Taking medication for hyperlipidemia, but not consistently. - Last cholesterol check in February showed mild elevation. - No major family history of MD or CVA; maternal grandmother had a CVA. Weight Management: - Taking semaglutide, obtained through a compounding pharmacy. Brittani Denis, CARLOS [address], [place], [address], [facility] - [facility] 11/18/2024 19:33:54 12/21/2024 text/html The patient is a 69-year-old female with a history of depression, anxiety, and sciatica, presenting for follow-up on GeneSight testing and evaluation of hip pain. Depression and Anxiety: - GeneSight testing results reviewed. - Currently taking bupropion, duloxetine, and trazodone. - Trazodone use since 1987; adherent to trazodone, but reports poor adherence to other medications. - Discontinued duloxetine several months ago; considering stopping it permanently. - Reports stable mood, not feeling depressed, depressed. - Engaged in counseling. - History of bipolar II disorder diagnosis, but denies experiencing manic episodes. Hip Pain and Sciatica: - Intermittent sciatica pain, with current episode lasting 10 days. - Pain localized to the right hip, radiating down the leg. - Aggravated by sitting and weight-bearing; disrupts sleep. - Reports tightness in the right hip muscle. - Previous episodes resolved with corticosteroid injections and muscle relaxers. - Denies recent trauma or injury. - Has not been exercising or golfing due to pain. Brittani Denis, DOPE WEIGH OPERATOR [address], [place], [address], [place] - [facility] 12/21/2024 18:34:52 OBGyn Episode No OBEpisode recorded.
--- OUTSIDE RECORDS SUMMARY | 2025-01-03 16:25 | XMS_ITS | Patient Health Record ---
Author Organization On license of [facility] Address [address] [place] [address] Support Name Relationship Address Phone Jacob Hernandez Emergency Contact Unknown Marci Rolon Guarantor Unknown [phone] Allergies No Known Allergies Reason For Referral No Information Medications Medication SIG (Take, Route, Fr equency, Duration) Notes Start Date End Date Status Wellbutrin SR Active traZODone 300 mg as directed orally Active methocarbamol 750 mg 1-2 tab(s) orally 3 times a day for 15 days Active lovastatin 10 mg 1 tab(s) orally once a day Active Protonix 40 mg 1 tab(s) orally once a day Active Cymbalta 60 mg 1 cap(s) orally once a day Active Social History Tobacco Use: Social History Observation Description Date Details (start date - stop date) Never Smoker NA - NA Alcohol use: Question Answer Notes Did you have a drink containing alcohol in the p ast year? Yes Daily Tobacco use: Question Answer Notes The patient is a nonsmoker Problems Problem Type SNOMED Code ICD Code Onset Dates Problem Status W/U Status Risk Notes Problem Cervical radiculopathy (30638670) Cervical radiculopathy (M54.12) Active confirmed Problem Arthropathy of cervical spine facet joint (disorder) (581350014) Cervical facet arthropathy (M47.812) Active confirmed Problem Cervical Degenerative Disc Disease, unspecified (M50.90) Active confirmed Problem Muscle pain (51947154) Myalgia, other site (M79.18) Active confirmed Plan Of Treatment No Information Insurance Providers Payer Name Payer Address Payer Phone Subscriber Number Group Number Insured Name Patient Relationship to Insured Coverage Start Date Coverage End Date Blue [employer] Medicare Advantage SP 18 [address] [place] [address] 2920 [id number] JustynMarci sow Self - patient is the insured 4 Medical (General) History Medical History History ICD Code Depression Night Sweats GERD Surgical History Surgery Date(Month/Year) Hysterectomy - Complete 1998 Hospitalization History Reason Date(Month/Year) Same as surgery
[2025-01-03 16:36] VITALS: BP 159/88; PULSE 60; RESP 20; TEMP 36.4; O2SAT 97; BMI 24.5
--- NOTE | 2025-01-03 17:03 | ED.BACK ---
HPI - Back Pain/Injury General Time Seen by Provider: 17:03 Date Seen: 01/03/25 Chief Complaint: Back Injury/Pain Stated Complaint: Back pain, sciatica Time Seen by Provider: 01/03/25 16:46 Source: patient and RN notes reviewed Mode of arrival: ambulatory Limitations: no limitations History of Present Illness HPI Narrative: This 69-year-old female is coming into the ER with pain. She had talked to the orthopedist at [facility], advised her to come in for acute treatment. She has had left back pain, feels it in her buttock and does go down the back of her leg but stops at her knee. She was initially given Medrol Dosepak from her primary care provider about 3 weeks ago, did help some but was referred to [facility] orthopedics. She states they took some x-rays there, he believes it is her left sacroiliac joint that is bothering her. She was referred to [facility] to get an injection, her insurance declined that. They recommended she do physical therapy 1st, she states he orthopedist stated she needed injection before physical therapy. She has been back and forth, just having increasing pain. She is having difficulty finding a position of sleep. There is no numbness tingling. She states she was given injection years ago by Dr. Bronson for this before but was years ago. She has maybe had 3 or 4 times where she has had this pain before. She denies any trauma, no numbness tingling or weakness in her extremity, no bowel or bladder issues. She is taking care grand kids, supposed to be going to another grandchild's graduation and helping with that. She is just beside herself as she can not get relief. She has tried some Tylenol and ibuprofen albeit not consistently she does not like taking them all the time. MD elicited complaint: back pain Related Data Home Medications ?Medication ?Instructions ?Recorded ?Confirmed diclofenac sodium 1 % topical gel See Rx Instructions topical QID PRN 02/06/22 01/03/25 multivitamin with minerals-ferrous tab PO DAILY 02/06/22 07/02/23 sulfate 4.5 mg iron tablet (One Daily Multivitamins with Minerals) clobetasol 0.05 % scalp solution 1 applic topical BID PRN 03/06/23 01/03/25 Previous Rx's ?Medication ?Instructions ?Recorded triamcinolone acetonide 0.025 % 1 applic topical BID PRN rash #80 02/09/23 topical ointment grams bupropion HCl 150 mg 24 hr tablet, 300 mg (2 x 150 mg) PO DAILY #180 03/06/23 extended release tabs duloxetine 60 mg capsule,delayed 60 mg PO QDAY #90 caps 03/06/23 release rosuvastatin 5 mg tablet 5 mg PO DAILY #90 tabs 03/06/23 trazodone 150 mg tablet 300 mg (2 x 150 mg) PO .Bedtime 05/07/23 #90 tabs clonazepam 1 mg tablet 1 mg PO BID PRN anxiety #60 tabs 05/08/23 fezolinetant 45 mg tablet 45 mg PO QDAY #90 tabs 06/23/23 fluocinolone 0.025 % topical cream 1 applic topical BID #60 grams 07/02/23 tacrolimus 0.03 % topical ointment 1 applic topical BID #60 grams 07/02/23 oxybutynin chloride 5 mg tablet 2.5 mg (1/2 x 5 mg) PO BID #45 tabs 07/21/23 pantoprazole 40 mg tablet,delayed 40 mg PO BID #180 tabs 09/08/23 release celecoxib 200 mg capsule 200 mg PO DAILY #10 caps 01/03/25 gabapentin 100 mg capsule 100 mg PO QHS #30 caps 01/03/25 prednisone 20 mg tablet 20 mg PO BID #10 tabs 01/03/25 Review of Systems Narrative: As per HPI. [facility] Medical History Aortic aneurysm ?I71.9 - Aortic aneurysm of unspecified site, without rupture (ICD-10) Sleep disorder ?G47.9 - Sleep disorder, unspecified (ICD-10) Daytime somnolence ?R40.0 - Somnolence (ICD-10) History of reduction of nasal fracture ?Z98.890 - Other specified postprocedural states (ICD-10) ?Z87.81 - Personal history of (healed) traumatic fracture (ICD-10) Surgical History History of total vaginal hysterectomy (TVH) (1999) ?Z90.710 - Acquired absence of both cervix and uterus (ICD-10) History of rhytidectomy ?Z98.890 - Other specified postprocedural states (ICD-10) History of breast augmentation ?Z98.82 - Breast implant status (ICD-10) Family History Mother Emphysema lung Father Thyroid disease Family/Other Thyroid disease Social History Narrative: does not use illicit drugs nonsmoker occasional alcohol consumption Highest level of school completed/degree received: high school graduate Smoking Status: Never smoker How often do you have a drink containing alcohol: 4 or more times a week How many standard drinks containing alcohol do you have on a typical day: 1 or 2 AUDIT-C Alcohol total score: 4 Non-prescribed substance use: denies use Are you now , , , , never or living with a partner: living with partner Social isolation score (0-1 are the most socially isolated patients): 1 Do you think of yourself as: straight/heterosexual Gender Identity: female Are you currently sexually active: Yes In the past 12 months, how many sex partners have you had: one Exam Const: Vital Signs, click to edit/add: Vital Signs - 24 hr 01/03/25 16:36 Temperature 97.5 F L Pulse Rate [Pulse Oximeter] 60 Respiratory Rate 20 Blood Pressure [Ri ght Upper Arm] 159/88 H Pulse Oximetry 97 Oxygen Delivery Me thod Room Air This 69-year-old female is alert, interactive, no apparent distress. No midline tenderness of her spine, she definitely is tender when I palpate directly over her left sacroiliac joint. Negative straight leg raising on either side but raising the left leg gives her pain right over her SI joint on the left. Strength is 5/5 and symmetric throughout toes, feet, ankle, lower extremities/knees, hips including abduction and adduction. She has normal light touch sensation, no edema or vascular changes of her lower extremities, good peripheral pulses. Documenting provider has reviewed patient's vital signs: yes Course Course ED Course: Patient wants to know if this is going to be a recurrent thing or if her symptoms are just going to go way. I do not have access to her x-ray reports nor any of her clinic reports. Did look in her old records here and cannot see any injection within are new computer system. Thus, it is difficult to say. My best advice is that we try to treat her pain, consider a dose of steroids again. If this is her sacroiliac joint that is problematic, injection may be the best thing, ultimately defer to the orthopedist seeing her as I do not have these records. I do not think that she needs laboratory work or further imaging, reportedly just had imaging of her back. I would recommend repeat course of prednisone, baseline management with Celebrex and Tylenol, discussed Tylenol 1000 mg 3 times a day baseline. Will have her trial some gabapentin to help with sleep and pain mediation. Vital Signs Vital signs: Initial Vital Signs Temperature 97.5 F L 01/03/25 16:36 Temperature Source Temporal Artery Scan 01/03/25 16:36 Pulse Rate 60 01/03/25 16:36 Respiratory Rate 20 01/03/25 16:36 Blood Pressure 159/88 H 01/03/25 16:36 Blood Pressure Mean 111 H 01/03/25 16:36 Pulse Oximetry 97 01/03/25 16:36 Oxygen Delivery Method Room Air 01/03/25 16:36 Vital Signs Temperature 97.5 F L 01/03/25 16:36 Pulse Rate 60 01/03/25 16:36 Respiratory Rate 20 01/03/25 16:36 Blood Pressure 159/88 H 01/03/25 16:36 Pulse Oximetry 97 01/03/25 16:36 Oxygen Delivery Method Room Air 01/03/25 16:36 Temperature 97.5 F L 01/03/25 16:36 Pulse Rate 60 01/03/25 16:36 Respiratory Rate 20 01/03/25 16:36 Blood Pressure 159/88 H 01/03/25 16:36 Pulse Oximetry 97 01/03/25 16:36 Oxygen Delivery Method Room Air 01/03/25 16:36 Discharge Plan Discharge Clinical Impression: Pain of left sacroiliac joint Patient Disposition: Home, Self-Care Condition: Stable Instructions: Acute Low Back Pain (ED) Additional Instructions: Please try to call the orthopedic office tomorrow and get further guidance from them. Do recommend going back on prednisone, take as prescribed and take with food. Have also written for Celebrex which is an NSAID, take this daily, is long-acting. Will also prescribe you gabapentin at bedtime. Can start with 100 mg at bedtime, can increase by a 100 mg every 2-3 days up to a total of 300 mg or 3 tablets at bedtime. If 100 mg of the gabapentin is sufficient for sleep and pain management, can just stay at that level. Please schedule follow-up with the to the orthopedist or your primary care provider if ongoing issues. Activity Level: Activity as Tolerated Prescriptions: New prednisone 20 mg tablet 20 mg PO BID Qty: 10 0RF celecoxib 200 mg capsule 200 mg PO DAILY Qty: 10 0RF gabapentin 100 mg capsule 100 mg PO QHS Qty: 30 0RF No Action diclofenac sodium 1 % gel See Rx Instructions topical QID PRN Rx Instructions: 2-4 GRAMS topical four times daily PRN; One Daily Multi-Vit w-Mineral 4.5 mg iron tablet PO DAILY clobetasol 0.05 % solution 1 applic topical BID PRN bupropion HCl 150 mg tablet extended release 24 hr 300 mg PO DAILY Qty: 180 3RF duloxetine 60 mg capsule,delayed release(DR/EC) 60 mg PO QDAY Qty: 90 3RF rosuvastatin 5 mg tablet 5 mg PO DAILY Qty: 90 3RF fezolinetant 45 mg tablet 45 mg PO QDAY Qty: 90 1RF fluocinolone 0.025 % cream 1 applic topical BID Qty: 60 0RF Rx Instructions: Apply to affected area twice daily on Thursday and Sundays, tacrolimus 0.03 % ointment 1 applic topical BID Qty: 60 1RF Rx Instructions: Apply topically to affected area twice daily Thursday thru Thursday triamcinolone acetonide 0.025 % ointment 1 applic topical BID PRN (Reason: rash) Qty: 80 0RF trazodone 150 mg tablet 300 mg PO .Bedtime Qty: 90 1RF clonazepam 1 mg tablet 1 mg PO BID PRN (Reason: anxiety) Qty: 60 0RF oxybutynin chloride 5 mg tablet 2.5 mg PO BID Qty: 45 3RF pantoprazole 40 mg tablet,delayed release (DR/EC) 40 mg PO BID Qty: 180 1RF Follow Up/Referrals: Madhu Bronson MD [Primary Care Provider, Family Practice] Stand Al[facility] Info Instructions
--- OUTSIDE RECORDS SUMMARY | 2025-01-03 17:49 | XMS_ITS | Encounter Summary ---
Author Organization [place] Address [address] [place] [address] Care Team Providers Care Cardiology Teacher Name Role Phone Madhu Bronson Primary Care Provider Unavailabl e Encounter Details Date Type Department Care Team (Late st Contact Info) Description 12/29/2024 Telephone [facility] [address] [place] [phone] Edmundo Baca, RN Social History Tobacco Use Types Packs/Day Years Used Date Smoking Tobacco: Never Smokeless Tobacco: Never Alcohol Use Standard Drinks/Week Comments Yes 0 (1 standard drink = 0.6 oz pur e alcohol) 6 drinks per week Comments Unknown Sex and Gender Information Value Date Recorded Sex Assigned at Not on file Legal Sex Female 3:25 AM INCLINOMETER TESTER Gender Identity Not on file Sexual Orientation Not on file documented as of this encounter Miscellaneous Notes * Telephone Encounter - Edmundo Baca RN - 12/29/2024 10:33 AM CDT Left voicemail for patient regarding upcoming sacroiliac joint injection on 01/04/25. Patient given number to call back. No medication to be held. documented in this encounter Plan of Treatment Upcoming Encounters Date Type Department Care Team (Late st Contact Info) Description 01/04/2025 9:15 AM CDT Appointment [facility] [address] [place] [phone] Kwadwo Garzon MD [facility] [address] [place] [address] documented as of this encounter Visit Diagnoses Not on filedocumented in this encounter Care Teams Cardiology Teacher Relationship Specialty Start Date End Date Madhu Bronson [address] [place] [address] PCP - General 05/03/18 documented as of this encounter
--- OUTSIDE RECORDS SUMMARY | 2025-01-03 17:49 | XMS_ITS | Clinical Summary ---
Author Organization [place] Address [address] [place] [address] Care Team Providers Care Pricing Supervisor Name Role Phone Madhu Bronson Primary Care Provider Unavailabl e Allergies No known active allergies Medications BuPROPion HCl (WELLBUTRIN PO) Take 300 mg [...] Palpitations 05/28/2018 RBBB 05/28/2018 Ascending aorta dilatation 05/28/2018 Dyslipidemia 05/28/2018 Mitral valve regurgitation 05/28/2018 Chronic left shoulder pain 09/16/2017 Cervicalgia 09/16/2017 Resolved Problems Problem Noted Date Diagnosed Date Resolved Date Pain in joint, ankle and foot 03/07/2010 10/01/2010 Peroneal tendon injury 03/07/201010/01 Encounters Date Type Department Care Team Description 12/29/2024 Telephone [facility] [address] [place] [phone] Edmundo Baca, RADHA from Last 3 Months Immunizations Immunization Administration Dates Next Due Influenza (High Dose) Trival ent,PF (Fluzone) 05/16/2015,03/15/2014 Influenza (IIV3) PF 03/18/2013, 2,06/07/2010,2008 Influenza [...] on file Legal Sex Female 3:25 AM PALS SPECIALIST Gender Identity Not on file Sexual Orientation Not on file Last Filed Vital Signs Vital Sign Reading Time Taken Comments Blood Pressure 145/57 06/14/2018 7:25 AM PALS SPECIALIST Pulse 69 06/14/2018 7:25 AM PALS SPECIALIST Temperature 36.1 C (96.9 F) 06/14/2018 7:25 AM PALS SPECIALIST Respiratory Rate 16 06/14/2018 7:25 AM PALS SPECIALIST Oxygen Saturation 97% 06/14/2018 7:25 AM PALS SPECIALIST Inhaled Oxygen Concentration - - Weight 78.9 kg (174 lb) 06/13/2018 8:21 PM PALS SPECIALIST Height 167.6 cm (5' 6) 06/13/2018 8:21 PM PALS SPECIALIST Body Mass Index 28.08 06/13/2018 8:21 PM PALS SPECIALIST Plan of Treatment Upcoming Encounters Date Type Department Care Team (Late st Contact Info) Description 01/04/2025 9:15 AM CDT Appointment [facility] [address] [place] [address] Kwadwo Garzon MD [facility] [address] [place] [address] Health Maintenance Due Date Last Done Comments ANNUAL REVIEW OF HM ORDERS 1955 CT COLONOGRAPHY 1955 DEXA 1955 DIABETES SCREENING 1955 FIT 1955 FLEX SIG 1955 LIPID 1955 MAMMO SCREENING 1955 sDNA (Cologuard) 1955 COLONOSCOPY 1965 COLORECTAL CANCER SCREENING 1965 FALL RISK ASSESSMENT 2020 ADVANCE CARE PLANNING 06/14/2023 06/14/2018 COVID-19 VACCINE ( season) 2024 05/19/2021, 10/13/2020, 09/15/2020 PHQ-2 (once per calendar year) 2024 INFLUENZA VACCINE (Season Ended) 2025 05/19/2021, 05/18/2020, 04/30/2019, Additional history exists RSV VACCINE (1 - 1-dose 75+ series) 2030 DTAP/TDAP/TD VACCINE (3 - Td or Tdap) 12/06/2030 12/06/2020, 06/12/2012, 06/12/2012, Additional history exists ZOSTER VACCINE Completed 05/04/2018, 02/18/2018 HEPATITIS C SCREENING Completed 06/14/2018 PNEUMOCOCCAL VACCINE 50+ YEARS Completed 03/06/2023, 07/26/2020 HPV VACCINE Aged Out No longer eligi ble based on patient's age to complete this topic MENINGITIS VACCINE Aged Out No longer eligible based on patient's age to complete this topic Procedures Procedure Name Priority Date/Time Associated Diagnosis Comments HEPATITIS C ANTIBODY Routine 06/14/2018 6:45 AM PALS SPECIALIST Generalized abdominal pain from Last 3 Months or Most Recently Relevant to Health Maintenance Results * Hepatitis C antibody (06/14/2018 6:45 AM PALS SPECIALIST) Hepatitis C Antibody Nonreactive NR^Nonre active 06/14/2018 2:06 PM PALS SPECIALIST [facility] Comment: Assay performance characteristics have not been established for newborns, infants, and children 06/14/2018 6:45 AM PALS SPECIALIST 06/14/2018 6:50 AM PALS SPECIALIST us Elias Motta MD LAB - BLOOD ORDERABLES F inal Result [facility] [address] [place] [address], [facility] from Last 3 Months or Most Recently Relevant to Health Maintenance Insurance [facility] MEDICARE ADVANTAGE [facility] MEDICARE ADVANTAGE Advance Directives For more information, please contact: [phone] * Full Code (Latest Code Status on File) Date Activated Date Inactivated Comments 06/14/2018 1:06 PM Question Answer Comments Code status determined by: Discussion with sujit watson/legal decision maker Care Teams Pricing Supervisor Relationship Specialty Start Date End Date Madhu Bronson [address] [place] [address] PCP - General 05/03/18
--- OUTSIDE RECORDS SUMMARY | 2025-01-03 17:49 | XMS_ITS | Continuity of Care Document ---
Author Organization [place] - [facility] [place] [facility], [place] Address [address] [place] [address] Assessment Encounter Date Assessment Date Assessment LastModified by Organization Details LastModified Time 12/21/2024 12/21/2024 -30 mins - Documented the total time spent on patient care, including ipyc-ax-chqk and yfc-ogfp-gq-f james activities including reviewing outside records and documentation . [email or web address] Not available 12/21/2024 18:34:21 Plan of Treatment Reminders Order Date Submit Date Provider Last Modified By Organization Details Last Modified Time Details Appointments Annual Wellness Visit 2024 10:40A Elkin Denis CNP Not available Not available Not [...] if imaging or injection s 2024 025 [email or web address] [facility], [address] [facility], [place], [address], 12/21/2024 13:40:11 Procedures None recorded. Surgeries None recorded. Imaging None recorded. Medication Orders methylpre dnisolone 4 mg tablets in a dose pack 2024 025 [id number], [id number] [place], [address], 12/21/2024 10:34:49 Patient TargetsNo targets recorded. Patient Instructions Encounter Date Encounter Id Patient Instructions Last Modified By Organization Details Last Modified Time 12/21/2024 [id number] - Duloxetine has been removed from your medication list, as you have chosen to stop taking it at this time. Continue your current bupropion and trazodone. - Take the 6-day prednisone pack as prescribed to help reduce inflammation and relieve sciatica pain. - Perform the home exercises to ease nerve irritation; see below. - See the strategic marketing specialist as referred to discuss a possible corticosteroid injection and to be evaluated for physical therapy. - Apply an ahfi-ulk-mmczdqb salicylic acid spot treatment directly to the acne spot; avoid spreading it over healthy skin. If the lesion does not heal within 4 6 weeks, arrange a dermatology evaluation. - If your sciatica pain returns or worsens as you taper off the prednisone, contact the strategic marketing specialist or our office for further management. [...] 30 seconds. Repeat on both sides. 2. Ftkx-zt-Opmtk Stretch While lying on your back, pull [...] 18:33:40 Reason for Referral Orthopedic Sports Medicine R ronda for Disorder of left sciatic nerve Referral [...] Brittani Denis, Family Medicine, Encounter Date: 12/21/2024 Problems Name Problem SNOMED Code Status Onset Date Resolution Date Notes Provider Name and Address Organization Details Recorded Time Recurren t major depressi ve episodes , in full remissio n Active 2014 Major depressi on, recurren t, full remissio n Not Available [facility] 4 11:50:46 Eosinoph ilic esophagi tis 210352748 Active 2023 Eosinoph ilic esophagi tis Not Available [facility] 4 11:50:46 Constipa tion 26487085 Active 2014 CONSTIPA TION Not Available [facility] 4 11:50:46 Iatrogen ic ovarian failure 30057225 Active 2005 Symptoma tic states associat ed with artifici al menopaus e Not Available [facility] 4 11:50:46 Bipolar II disorder 79453216 Active 2014 pt reports she was never diagnose d and has yet to follow up with psychiat ry, doesn't see a point because says she won't take any medicati ons for it [facility] 4 11:56:53 Diaphrag matic hernia 69641698 Active 2014 HIATUS HERNIA Not Available [facility] 4 11:50:47 Screenin g status 724175220 Completed 200905/10/2024 Screen for colon cancer Not Available [facility] 4 11:50:47 Ascendin g aorta dilatati on 619231631 Active 2017 Ascendin g aorta dilatati on Not Available [facility] 4 11:50:48 Disorder of bone 30507875 Active 2006 Disorder of bone and cartilag e, unspecif ied Oste openia Not Available [facility] 4 11:50:48 Drug indicate d 532048426 Active 2013 Encounte r for long-ter m (current ) use of other medicati ons Cont rolled substanc e agreemen t signed Not Available [facility] 4 11:50:48 Bradycar angel 68635091 Active 2008 48-50s, low heart rate all of my life used to faint occasion ally but hasn't for many years. Saw [facility] cardiolo gist but does not require follow up per patient report. [facility] 4 11:54:47 Symptoms and signs involvin g appearan ce and behavior 862793163 Active 2014 Obsessiv e-compul sive personal ity trait Not Available [facility] 4 11:50:49 Generali zed anxiety disorder 64433664 Active 2011 Generali zed anxiety disorder Not Available [facility] 4 11:50:49 Malaise 193632150 Active 1999 FATIGUE Not Available [facility] 4 11:50:49 Non-rheu matic mitral regurgit ation 778048669 Active 2012 Mitral regurgit ation mild per echo 03/2023; Echo compared to 2018 no signific ant changes [facility] 4 11:55:57 Hemorrho ids 27609121 Completed 200605/10/2024 Unspecif ied hemorrho ids without mention of complica tion Not Available [facility] 4 11:50:50 Presbyop ia 19001367 Active 2006 Presbyop ia Not Available [facility] 4 11:50:50 Atrophic vaginiti s 86753841 Active 2023 Post-men opausal atrophic vaginiti s Not Available [facility] 4 11:50:50 Hyperlip idemia 09780731 Active 2013 Dyslipid emia Hyp erlipemi a Not Available [facility] 4 11:50:51 Palpitat ions 86273021 Active 2012 Palpitat ions Not Available [facility] 4 11:50:51 Long-ter m drug therapy Active 2018 Controll ed substanc e agreemen t signed Jennifer Hernandezdonna figueroa [facility] [place] [facility] 4 20:24:22 Osteopen ia 956245819 Active 2014 history of fosamax, does not recall how long she was on it for Rivas figueroa [facility] 4 12:00:33 Notes:Problem Name: MYLAGIA - NOS Problem Code Type: SNOMED Status: Active Start_Date: 12/01/1999 - Problem Notes None recorded. Procedures Surgical History Date Name Laterality Status Provider Name and Address Organization Details Recorded Time 4 Date of Last Colonoscopy completed [email or web address] [place] [facility] 06/13/2024 12:08:51 6 Date of Last Mammogram completed [facility] 06/13/2024 12:08:34 5 Most Recent Bone Density completed [facility] 06/13/2024 12:09:06 Imaging Results None recorded. Procedure Notes None recorded. Medical Equipment None Reported. Allergies Allergen ID Allergen Name Allergen Category Reaction Reaction Severity Criticality Documentation Date Start Date Code Code System Note Provider Name and Address Organization Details Recorded Time 48326 aripipraz ole Not available Not available Not available Not available 05/10/20242012 97194 RxNorm React ion: Tardi ve Dyski nesia , sever ity: Mild Not Available [facility] 4 12:11:03 40725 aripipraz ole medicatio n Not available Not available Not available 11/18/20242012 44136 RxNorm Mouth movem ents at 10 mg daily unrec ogniz ed react ion (text : Tardi ve Dyski nesia , code: 12305 9007) (from [facility]) Not Available [place] - External Data Service - prod 5 [...] e 50 mcg/actua tion nasal spray,abdiaziz pension [place] 2 sprays every day by intranas al [...] Organization Details Last Updated DateTime 167.64 cm 28 kg/m2 36041.9 9 g 96.7 [degF] 57 /min 96 % 96 % 126 mm[Hg] 80 mm[Hg] Helga Alvarado [place] [facility] 09:55:56 Social History Question Answer Notes LastModified by [employer] Details LastModified Time Tobacco Smoking Status Never Smoker Not Available [facility] 05/10/2024 09:18:46 What Is The Highest Grade Or Level Of School You Have Completed Or The Highest Degree You Have Received? MU56056-5 Information not available 06/13/2024 Sex: Female Functional Status Question Answer Note LastModified by [employer] Details LastModified Time Do you have transportation [...] high-dose, trivalent, PF 4 completed Not Available [facility] 05/10/2024 14:20:20 Td (adult), 5 Lf tetanus toxoid, preservative free, adsorbed 4 completed Not Available [facility] 05/10/2024 14:20:21 influenza, unspecified formulation 6 completed Not Available [facility] 05/10/2024 14:20:21 Influenza, split virus, quadrivalent, PF 0 completed Not Available [facility] 05/10/2024 14:20:21 zoster recombinant 8 completed Not Available [facility] 05/10/2024 14:20:22 Influenza, split virus, quadrivalent, PF 6 completed Not Available [facility] 05/10/2024 14:20:22 pneumococcal polysaccharide PPV23 3 completed Not Available [facility] 05/10/2024 14:20:22 zoster recombinant 8 completed Not Available [facility] 05/10/2024 14:20:22 Tdap 1 completed Not Available [facility] 05/10/2024 14:20:22 Influenza, split virus, trivalent, preservative 9 completed Not Available [facility] 05/10/2024 14:20:22 COVID-19, mRNA, LNP-S, PF, 100 mcg/0.5mL dose or 50 mcg/0.25mL dose 1 completed Not Available [facility] 05/10/2024 14:20:22 Influenza, split virus, trivalent, preservative 3 completed Not Available [facility] 05/10/2024 14:20:22 Influenza, high-dose, trivalent, PF 5 completed Not Available [facility] 05/10/2024 14:20:22 COVID-19, mRNA, LNP-S, PF, 100 mcg/0.5mL dose or 50 mcg/0.25mL dose 1 completed Not Available [facility] 05/10/2024 14:20:22 Influenza, split virus, trivalent, preservative 0 completed Not Available [facility] 05/10/2024 14:20:23 Pneumococcal conjugate PCV 13 1 completed Not Available [facility] 05/10/2024 14:20:23 Influenza, split virus, quadrivalent, preservative 7 completed Not Available [facility] 05/10/2024 14:20:23 Influenza, split virus, trivalent, preservative 2 completed Not Available [facility] 05/10/2024 14:20:23 Influenza, split virus, trivalent, preservative 3 completed Not Available [facility] 05/10/2024 14:20:24 Influenza, split virus, trivalent, preservative 2 completed Not Available [facility] 05/10/2024 14:20:24 Influenza, split virus, quadrivalent, preservative 9 completed Not Available [facility] 05/10/2024 14:20:24 Influenza, split virus, trivalent, preservative 4 completed Not Available [facility] 05/10/2024 14:20:24 COVID-19, mRNA, LNP-S, PF, 100 mcg/0.5mL dose or 50 mcg/0.25mL dose 1 completed Not Available [facility] 05/10/2024 14:20:24 Influenza, split virus, quadrivalent, PF 5 completed Not Available [facility] 05/10/2024 14:20:24 Td (adult), 2 Lf tetanus toxoid, preservative free, adsorbed 4 completed Not Available [facility] 05/10/2024 14:20:24 Tdap 2 completed Not Available [facility] 05/10/2024 14:20:24 Influenza, high-dose, quadrivalent, PF 1 completed Not Available [facility] 05/10/2024 14:20:24 Influenza, split virus, trivalent, PF 8 completed Not Available [facility] 05/10/2024 14:20:25 Past Encounters Encounter ID Performer Location Encounter Start Date Encounter Closed Date Diagnosis/Indication Diagnosis SNOMED-CT Code Diagnosis ICD10 Code Diagnosis Note [id number] Brittani Denis CNP [place] [address] [place] [address] 12/07/2024 10:40:10 12/07/2024 10:56:33 [id number] Brittani Denis CNP [place] [address] [place] [address] 12/21/2024 09:37:50 12/21/2024 10:48:34 Moderate recurrent major depression 41173214 F33.1 - Gene site testing results reviewed, [...] resolved. Disorder o f left sciatic nerve 9882848724 73080 M54.32 - Patient reports pain radiating from [...] s if symptoms persist or worsen. Acne 77152211 L70.9 - Patient presents with one pimple-lik [...] by Organization Details LastModified Time None Recorded Payers Encounter Date Sequence Insurance Name Policy Number Policy Sosa Covered Member ID Sosa Member ID Guarantor Name 12/21/2024 1 [place] (MEDIC[place]AC[place] PPO) [id number] Marci Rolon [id number] Marci Rolon Notes Date Note Type Note Provider Name and Address Organization Details Recorded Time 12/21/2024 text/html The patient is a 69-year-old [...] or golfing due to pain. Brittani Denis, [employer] [address], [place], [address], [place] [facility] 12/21/2024 18:34:52 OBGyn Episode No OBEpisode recorded.
--- OUTSIDE RECORDS SUMMARY | 2025-01-03 17:49 | XMS_ITS | Continuity of Care Document ---
Author Organization [facility] [employer] [facility], [place] Address [address] [place] [address] Assessment No assessment recorded. Plan of Treatment Reminders Order Date Submit Date Provider Last Modified By Organization Details Last Modified Time Details Appointments Annual Wellness Visit 2024 10:40A M Brittani Denis CNP Not available Not available Not available Lab None recorded. Referral None recorded. Procedures None recorded. Surgeries None recorded. Imaging None recorded. Medication Orders None recorded. Patient TargetsNo targets recorded. Patient InstructionsNo instructions recorded. Reason for Referral None Reported. Problems Name Problem SNOMED Code Status Onset Date Resolution Date Notes Provider Name and Address Organization Details Recorded Time Recurren t major depressi ve episodes , in full remissio n Active 2014 Major depressi on, recurren t, full remissio n Not Available [facility] 4 11:50:46 Eosinoph ilic esophagi tis 631931830 Active 2023 Eosinoph ilic esophagi tis Not Available [facility] 4 11:50:46 Constipa tion 81445813 Active 2014 CONSTIPA TION Not Available [facility] 4 11:50:46 Iatrogen ic ovarian failure 61188255 Active 2005 Symptoma tic states associat ed with artifici al menopaus e Not Available [facility] 4 11:50:46 Bipolar II disorder 73399024 Active 2014 pt reports she was never diagnose d and has yet to follow up with psychiat ry, doesn't see a point because says she won't take any medicati ons for it [facility] [employer] [facility] 4 11:56:53 Diaphrag matic hernia 93692784 Active 2014 HIATUS HERNIA Not Available [facility] 4 11:50:47 Screenin g status 687493535 Completed 200905/10/2024 Screen for colon cancer Not Available [facility] 4 11:50:47 Ascendin g aorta dilatati on 105650777 Active 2017 Ascendin g aorta dilatati on Not Available [facility] 4 11:50:48 Disorder of bone 98300865 Active 2006 Disorder of bone and cartilag e, unspecif ied Oste openia Not Available [facility] 4 11:50:48 Drug indicate d 321775145 Active 2013 Encounte r for long-ter m (current ) use of other medicati ons Cont rolled substanc e agreemen t signed Not Available [facility] 4 11:50:48 Bradycar angel 17501817 Active 2008 48-50s, low heart rate all of my life used to faint occasion ally but hasn't for many years. Saw [facility] cardiolo gist but does not require follow up per patient report. [facility] 4 11:54:47 Symptoms and signs involvin g appearan ce and behavior 928425074 Active 2014 Obsessiv e-compul sive personal ity trait Not Available [facility] 4 11:50:49 Generali zed anxiety disorder 36322109 Active 2011 Generali zed anxiety disorder Not Available [facility] 4 11:50:49 Malaise 231463662 Active 1999 FATIGUE Not Available [facility] 4 11:50:49 Non-rheu matic mitral regurgit ation 236679443 Active 2012 Mitral regurgit ation mild per echo 03/2023; Echo compared to 2018 no signific ant changes [facility] 4 11:55:57 Hemorrho ids 14551884 Completed 200605/10/2024 Unspecif ied hemorrho ids without mention of complica tion Not Available [facility] 4 11:50:50 Presbyop ia 70356087 Active 2006 Presbyop ia Not Available [facility] 4 11:50:50 Atrophic vaginiti s 56452127 Active 2023 Post-men opausal atrophic vaginiti s Not Available [facility] 4 11:50:50 Hyperlip idemia 07357170 Active 2013 Dyslipid emia Hyp erlipemi a Not Available [facility] 4 11:50:51 Palpitat ions 60341430 Active 2012 Palpitat ions Not Available [facility] 4 11:50:51 Long-ter m drug therapy Active 2018 Controll ed substanc e agreemen t signed Jennifer Pramod henry [facility] 4 20:24:22 Osteopen ia 663293274 Active 2014 history of fosamax, does not recall how long she was on it for Rivas figueroa [facility] 4 12:00:33 Notes:Problem Name: MYLAGIA - NOS Problem Code Type: SNOMED Status: Active Start_Date: 12/01/1999 - Problem Notes None recorded. Procedures Surgical History Date Name Laterality Status Provider Name and Address Organization Details Recorded Time 4 Date of Last Colonoscopy completed [facility] 06/13/2024 12:08:51 6 Date of Last Mammogram completed [facility] 06/13/2024 12:08:34 5 Most Recent Bone Density completed [facility] 06/13/2024 12:09:06 Imaging Results None recorded. Procedure Notes None recorded. Medical Equipment None Reported. Allergies Allergen ID Allergen Name Allergen Category Reaction Reaction Severity Criticality Documentation Date Start Date Code Code System Note Provider Name and Address Organization Details Recorded Time 82649 aripipraz ole Not available Not available Not available Not available 05/10/20242012 78323 RxNorm React ion: Tardi ve Dyszoey mcfaddenia , sever ity: Mild Not Available [facility] 4 12:11:03 84808 aripipraz ole medicatio n Not available Not available Not available 11/18/20242012 96096 RxNorm Mouth movem ents at 10 mg daily unrec ogniz ed react ion (text : Tardi ve Dyszoey mcfaddenia , code: [id number]) [facility] Not Available [place] - External Data Service - prod 5 [...] e 50 mcg/actua tion nasal spray,abdiaziz pension [place] 2 sprays every day by intranas al [...] Available Not Available No t Available Vitals None Recorded Social History Question Answer Notes LastModified by Organizat ion Details LastModified Time Tobacco Smoking Status Never Smoker Not Available [facility] 05/10/2024 09:18:46 What Is The Highest Grade Or Level Of School You Have Completed Or The Highest Degree You Have Received? [id number] Information not available 06/13/2024 Sex: Female Functional Status Question Answer Note LastModified by Organizat ion Details LastModified Time Do you have transportation [...] high-dose, trivalent, PF 4 completed Not Available [facility] 05/10/2024 14:20:20 Td (adult), 5 Lf tetanus toxoid, preservative free, adsorbed 4 completed Not Available [facility] 05/10/2024 14:20:21 influenza, unspecified formulation 6 completed Not Available [facility] 05/10/2024 14:20:21 Influenza, split virus, quadrivalent, PF 0 completed Not Available [facility] 05/10/2024 14:20:21 zoster recombinant 8 completed Not Available [facility] 05/10/2024 14:20:22 Influenza, split virus, quadrivalent, PF 6 completed Not Available [facility] 05/10/2024 14:20:22 pneumococcal polysaccharide PPV23 3 completed Not Available [facility] 05/10/2024 14:20:22 zoster recombinant 8 completed Not Available [facility] 05/10/2024 14:20:22 Tdap 1 completed Not Available [facility] 05/10/2024 14:20:22 Influenza, split virus, trivalent, preservative 9 completed Not Available [facility] 05/10/2024 14:20:22 COVID-19, mRNA, LNP-S, PF, 100 mcg/0.5mL dose or 50 mcg/0.25mL dose 1 completed Not Available [facility] 05/10/2024 14:20:22 Influenza, split virus, trivalent, preservative 3 completed Not Available [facility] 05/10/2024 14:20:22 Influenza, high-dose, trivalent, PF 5 completed Not Available [facility] 05/10/2024 14:20:22 COVID-19, mRNA, LNP-S, PF, 100 mcg/0.5mL dose or 50 mcg/0.25mL dose 1 completed Not Available [facility] 05/10/2024 14:20:22 Influenza, split virus, trivalent, preservative 0 completed Not Available [facility] 05/10/2024 14:20:23 Pneumococcal conjugate PCV 13 1 completed Not Available [facility] 05/10/2024 14:20:23 Influenza, split virus, quadrivalent, preservative 7 completed Not Available [facility] 05/10/2024 14:20:23 Influenza, split virus, trivalent, preservative 2 completed Not Available [facility] 05/10/2024 14:20:23 Influenza, split virus, trivalent, preservative 3 completed Not Available [facility] 05/10/2024 14:20:24 Influenza, split virus, trivalent, preservative 2 completed Not Available [facility] 05/10/2024 14:20:24 Influenza, split virus, quadrivalent, preservative 9 completed Not Available [facility] 05/10/2024 14:20:24 Influenza, split virus, trivalent, preservative 4 completed Not Available [facility] 05/10/2024 14:20:24 COVID-19, mRNA, LNP-S, PF, 100 mcg/0.5mL dose or 50 mcg/0.25mL dose 1 completed Not Available [facility] 05/10/2024 14:20:24 Influenza, split virus, quadrivalent, PF 5 completed Not Available [facility] 05/10/2024 14:20:24 Td (adult), 2 Lf tetanus toxoid, preservative free, adsorbed 4 completed Not Available [facility] 05/10/2024 14:20:24 Tdap 2 completed Not Available [facility] 05/10/2024 14:20:24 Influenza, high-dose, quadrivalent, PF 1 completed Not Available [facility] 05/10/2024 14:20:24 Influenza, split virus, trivalent, PF 8 completed Not Available [facility] 05/10/2024 14:20:25 Past Encounters Encounter ID Performer Location Encounter Start Date Encounter Closed Date Diagnosis/Indication Diagnosis SNOMED-CT Code Diagnosis ICD10 Code Diagnosis Note [id number] Brittani Denis [facility] [address] [place] [address] 11/18/2024 12:07:09 11/18/2024 13:35:54 Generalized anxiety disorder 83198858 F41.1 - Patient reports intermitte nt use of clonazepam , approximat oz once a month, for acute anxiety attacks. - Discussed the potential benefits of pharmacoge netic testing (Huniteight ) to tailor medication therapy based on genetic makeup. - Provided education on the GeneSight test, including the process (cheek swab) and the potential for insurance coverage. - Patient advised to contact [employer] or their insurance company to confirm coverage before proceeding with the test. - Tentativel y scheduled a lab visit for the GeneSight swab in one week, pending insurance confirmati on. - Patient to continue current medication regimen until results are available. Recurrent major depression in full remission 88959378 F33.42 - Patient has a long history [...] insurance coverage for the GeneSight test. - Tentativel y scheduled a lab visit for the GeneSight swab in one week, pending insurance confirmati on. - Patient to continue current medication regimen until results are available. Eosinophil ic esophagitis 068099997 K20.0 - Refill PPI provided today. Pt reports no new or worsening symptoms. - Continue to monitor and adjust treatment plan as needed. Hyperlipidemia 74152131 E78.5 - Patient's cholestero l was mildly [...] for February to reassess cholestero l levels. [id number] Brittani Denis, [facility] [address] [place] [address] 12/07/2024 10:40:10 12/07/2024 10:56:33 Health Concerns Section Related Observation LastModified by Organization Detai ls LastModified Time None Recorded Concern Status LastModified by Organization Details LastModified Time None Recorded Payers Encounter Date Sequence Insurance Name Policy Number Policy Sosa Covered Member ID Sosa Member ID Guarantor Name 12/07/2024 1 [place]) [id number] Marci Rolon [id number] Marci Rolon OBGyn Episode No OBEpisode recorded.
== END 2025-01-03 17:58 | disposition home or self-care (01) ==
LOC: ED 17:46
PROVIDERS: Emergency Provider Family Medicine; PCP Family Medicine
DX: M53.3 Sacrococcygeal disorders, not elsewhere classified (principal)
CPT/HCPCS: 99283

== ENCOUNTER 2025-05-22 14:23 | Outpatient (CLI) | payer MEDICARE, SELFPAY ==
--- NOTE | 2025-05-22 14:40 | CRLHL7_ITS ---
For Patients: As a result of the Century Cures Act, medical imaging exams and procedure reports are released immediately into your electronic medical record. You may view this report before your referring provider. If you have questions, please contact your health care provider. INDICATION: BILATERAL SCREENING MAMMOGRAM W/IMPLANTS, ASYMPTOMATIC 69 Y/O FEMALE COMPARISON: 12/01/2023, 04/30/2022, 01/09/2021 TECHNIQUE: Digital mammogram in CC and MLO projections including computer-aided detection (CAD) and tomosynthesis. BREAST COMPOSITION: There are scattered areas of fibroglandular density. FINDINGS: No suspicious findings. ASSESSMENT: BI-RADS 2 Benign RECOMMENDATION: Annual screening mammogram. A lay language report of this examination will be provided to the patient. Dictated by: Juan Gerardo MD @ 05/23/2025 10:01:10 (Electronically Signed)
== END 2025-05-22 14:24 | disposition home or self-care (01) ==
LOC: MAMMO 14:27
PROVIDERS: PCP Nurse Practitioner Primary Care; Visit Provider Nurse Practitioner Primary Care
DX: Z12.31 Encounter for screening mammogram for malignant neoplasm of breast (principal); Z98.82 Breast implant status
CPT/HCPCS: 77063; 77067